=== PATIENT | male | born 1995 | race Caucasian/White ===

== ENCOUNTER 2019-04-18 01:57 | Emergency (ER) | payer OTHER ==
[~2019-04-18] VITALS: Ht 177.8 cm; Wt 141.7 kg
[2019-04-18] MEDS ORDERED: ACETAMINOPHEN 325 MG TABLET PO ONE (02:30)
[2019-04-18] MEDS ORDERED: KETOROLAC 30 MG/1 ML IVPush ONE (02:30)
[2019-04-18 02:41] LABS: MEAN CORPUSCULAR HEMOGLOBIN 29.3 pg (27.5-34.5); MEAN CORPUSCULAR HGB CONC 32.9 g/dL (33.2-36.2); MEAN PLATELET VOLUME 9.9 fL (7.4-10.4); PLATELET COUNT 224 x10^3/uL (130-400); RED BLOOD COUNT 5.37 x10^6/uL (4.38-5.82); RED CELL DISTRIBUTION WIDTH 13.4 % (9.4-14.8)
[2019-04-18 02:51] LABS: ALANINE AMINOTRANSFERASE 152 U/L (12-78); ALBUMIN 3.9 g/dL (3.4-5.0); ANION GAP 8 mmol/L (5-15); CALCIUM 9.4 mg/dL (8.5-10.1); CHLORIDE 109 mmol/L (98-107); CREATININE 1.11 mg/dL (0.7-1.3)
[2019-04-18 02:55] LABS: BASOPHILS # (AUTO) 0.06 x10^3/uL (0-0.1); BASOPHILS % (AUTO) 0 % (0-1); EOSINOPHILS # (AUTO) 0.07 x10^3/uL (0-0.4); EOSINOPHILS % (AUTO) 0 % (1-7); LYMPHOCYTES # (AUTO) 5.38 x10^3/uL (1-3.4); LYMPHOCYTES % (AUTO) 33 % (22-44); MD SCAN; MONOCYTES % (AUTO) 8 % (2-9); NEUTROPHILS # (AUTO) 9.34 x10^3/uL (1.8-6.8); NEUTROPHILS % (AUTO) 58 % (42-75)
[2019-04-18 02:56] LABS: ALKALINE PHOSPHATASE 102 U/L (45-117); BILIRUBIN,TOTAL 0.7 mg/dL (0.2-1.0); TOTAL PROTEIN 7.9 g/dL (6.4-8.2); TROPONIN I < 0.015 ng/mL (0.000-0.045)
--- NOTE | 2019-04-18 03:02 | NUR ---
Report recieved from break Rn. Pt standing at side of bed, pacing, c/o substernal pain that radiates to mid back, SOB, and nausea. Pt is noted to be diaphoretic. Placed on monitor, NSR 60-70bpms, sats upper 90% on RA, speaks in full complete sentences. Pt instructed to work on controlled breathing, lights dimmed, verbalizes anxiety. MD notified, new order obtained for Zofran 4mg IV now, tiffany medicate for pain. waiting for results. family at bedside.
[2019-04-18] MEDS ORDERED: ONDANSETRON 2MG/ML, 2ML ONE (03:03)
[2019-04-18] MEDS ORDERED: KETOROLAC 30 MG/1 ML ONE (03:03)
--- NOTE | 2019-04-18 03:12 | NUR ---
Pt medicated for pain and nausea, education provided, waiting for results.
[2019-04-18 05:52] VITALS: BP 127/66
--- NOTE | 2019-04-18 05:54 | NUR ---
PT STABLE FOR DISCHARGE TO HOME, PIVREMVED, VSS, EXITCARE REVIEWED, VERBALIZES UNDERSTANDING. AMBULATES W/ STEADY GAIT TO FRONT LOBBY WITH FAMILY.
== END 2019-04-18 06:06 | disposition home or self-care (01) ==
LOC: ED 05:24
DX: R07.89 Other chest pain (principal)
CPT/HCPCS: 36415; 71045; 76700; 80053; 84484; 85025; 85379; 93005; 96374; 99284; J1885